=== PATIENT | female | born 2000 | race African-American/Black ===

== ENCOUNTER 2024-05-16 00:24 | Emergency (ER) | payer BC, SELFPAY ==
[2024-05-16 00:34] VITALS: BP 112/74
[2024-05-16 02:06] VITALS: BMI 22.2
[2024-05-16 02:10] VITALS: BP 93/68
[2024-05-16 03:00] VITALS: BP 100/69
--- NOTE | 2024-05-16 03:04 | EDRN ---
SPO2 from 02:51 charted in error. sensor not on patient properly, pt rechecked, 100% on room air
--- NOTE | 2024-05-16 03:46 | ED.GENMED ---
History of Present Illness
<CHRIS Trotter (Lenka) - Last Filed: 05/16/24 04:18>
General
Chief Complaint: Breathing Problem
Source: patient
Exam Limitations: none
Time Seen by Provider: 05/16/24 03:10
Nursing documentation reviewed up to this point in time: agreed with
History of Present Illness
History of Present Illness:
Pt is a 23yo female with PMHx of anemia presents to the ED for worsening shortness of breath x 1-2 weeks. She first noticed it when laying down, and reports that the SOB has consistently been present since. 'I am not able to catch a deep breath'. It
does not change with changes in position, it is consistent when laying down and sitting up. Admits to mild fatigue and headache. She denies pleuritic chest pain, chest palpitations, abdominal pain, cool extremities, calf cramping, fevers, chills,
URI sx. No sick contacts at home, no recent URI within the past month. She states that on the 08 of April she flew to [place], that is her only recent travel.
She does NOT smoke tobacco or do drugs.
No PMHx of allergies, asthma, COPD, sickle cell.
Pt not on daily medications, no OCPs, no aspirin, NSAIDs, antihistamines.
Past History
<CHRIS Trotter (Lenka) - Last Filed: 05/16/24 04:18>
Past History
ED Past Medical History: Other (anemia)
Social History
Tobacco: Non-smoker
Drug: None
Phy Exam
<CHRIS Trotter (Lenka) - Last Filed: 05/16/24 04:18>
General Physical Exam
General Presentation: well appearing and no apparent distress
General age: appears stated age
General Skin: warm and diaphoretic (mildly)
General Habitus: normal
General Mental: alert
General Hydration: appears well hydrated
Cardiovascular Exam
Cardiovascular Exam: regular rate/rhythm and normal peripheral pulses
Pulmonary Exam
Pulmonary Exam: no respiratory distress, no rales, chest non tender, no rhonchi, no wheezing and no cough
Gastrointestinal Exam
Gastrointestinal Exam: normal bowel sounds, non tender, soft, no pulsatile mass and non distended
Neurological Exam
Neurological Exam: alert, oriented x3 and speech normal
Scores
<Ammon Rhodes DO - Last Filed: 05/16/24 05:33>
PE Wells Score
Symptoms of DVT: No
No alternative diagnosis better explains the illness: No
Tachycardia with pulse > 100: No
Immobilization (>=3 days) or surgery within previous 4 weeks: No
Prior history of DVT or pulmonary embolism: No
Presence of hemoptysis: No
Presence of malignancy: No
Pulmonary Embolism Risk Score: 0
Probability of PE: Pt is low risk
Course
<ST Trotter (Lenka)PA - Last Filed: 05/16/24 04:18>
Orders/Labs/Results
Orders:
Orders
05/16/24 02:23
Test Result ONCE
CXR2 [CR Chest - 2 Views ] Urgent
Comment:
Reason For Exam: shortness of breath
05/16/24 03:49
EKG [Electrocardiogram (*1)] Urgent
Reason for Study: Shortness of Breath
05/16/24 03:59
CBC/With Diff [Complete Blood Count/With Diff] Urgent
CMP [Comprehensive Metabolic Panel] Urgent
D-Dimer Urgent
HCG, Serum Qualitative Screen Urgent
Comment: ADDON
05/16/24 04:03
Add On- LAB Urgent
Tests Added?: serum hcg qual
Abnormal Lab Results
05/16/24
03:59
MPV 12.6 H fL
(7.4-10.4)
05/16/24 03:59
05/16/24 03:59
Vital Signs
Initial and Last Documented VS:
Initial Vital Signs
Temp Pulse Resp BP Pulse Ox
98.2 F 101 22 112/74 98
05/16/24 00:34 05/16/24 00:34 05/16/24 00:34 05/16/24 00:34 05/16/24 00:34
Last Documented Vital Signs
Temp Pulse Resp BP Pulse Ox
98.2 F 89 20 101/82 96
05/16/24 00:34 05/16/24 05:10 05/16/24 05:10 05/16/24 05:10 05/16/24 05:00
<Ammon Rhodes, DO - Last Filed: 05/16/24 05:33>
Orders/Labs/Results
Orders:
Orders
05/16/24 02:23
Test Result ONCE
CXR2 [CR Chest - 2 Views ] Urgent
Comment:
Reason For Exam: shortness of breath
05/16/24 03:49
EKG [Electrocardiogram (*1)] Urgent
Reason for Study: Shortness of Breath
05/16/24 03:59
CBC/With Diff [Complete Blood Count/With Diff] Urgent
CMP [Comprehensive Metabolic Panel] Urgent
D-Dimer Urgent
HCG, Serum Qualitative Screen Urgent
Comment: ADDON
05/16/24 04:03
Add On- LAB Urgent
Tests Added?: serum hcg qual
Abnormal Lab Results
05/16/24
03:59
MPV 12.6 H fL
(7.4-10.4)
05/16/24 03:59
05/16/24 03:59
Vital Signs
Initial and Last Documented VS:
Initial Vital Signs
Temp Pulse Resp BP Pulse Ox
98.2 F 101 22 112/74 98
05/16/24 00:34 05/16/24 00:34 05/16/24 00:34 05/16/24 00:34 05/16/24 00:34
Last Documented Vital Signs
Temp Pulse Resp BP Pulse Ox
98.2 F 89 20 101/82 96
05/16/24 00:34 05/16/24 05:10 05/16/24 05:10 05/16/24 05:10 05/16/24 05:00
<CHRIS Trotter (Lenka) - Last Filed: 05/16/24 04:18>
MDM/Problems Addressed
Differential Diagnosis Includes:
23yo female with PMHx of anemia presents to the ED for worsening shortness of breath x 1-2 weeks. It does not change with changes in position, it is consistent when laying down and sitting up. Mild fatigue and ROMAN as associated sx.
Denies pleuritic chest pain, chest palpitations, abdominal pain, cool extremities, calf cramping. No sick contacts at home, no recent URI in the past month. She states that on the 08 of April she flew to [place], that is her only recent travel.
She does NOT smoke tobacco or do drugs.
No PMHx of allergies, asthma, COPD, sickle cell.
Pt not on daily medications, no OCPs, no aspirin, NSAIDs, antihistamines.
DDx: anemia vs pulmonary embolism vs asthma vs upper URI
Given benign PE and normal lung sounds, presence of SOB and ROMAN, we will check her H/H and RBC count with labs, as well as her electrolytes. Will order a D-dimer.
CXR - negative (my read)
EKG - NSR with sinus arrhythmia
Hemoglobin - 14.0
<CHRIS Trotter (Lenka) - Last Filed: 05/16/24 04:18>
*Critical Care Note
Total Time (30-74mins, 75-104mins- exclusive of procedures): Not Applicable
ED Attending Note
<CHRIS Trotter (Lenka) - Last Filed: 05/16/24 04:18>
-
Portions of this chart may have been created with voice recognition software.� Occasional wrong word or��sound alike� substitutions may have occurred due to the inherent limitations of voice recognition software.
<Ammon Rhodes DO - Last Filed: 05/16/24 05:33>
ED Attending Note
Patient seen and examined by attending physician: Yes
I performed the substantive portion of visit, reviewed & personally made and approve the management plan that is documented in note by myself or [place].: Yes
ED Attending Note:
Pleasant 23-year-old female who presents with shortness of breath for the last 2 weeks. She states that it waxes and wanes. She denies fever, chills. She reports no nausea or vomiting. She states that she is unable to keep her breath. She
reports that it is exacerbated when trying to catch her breath. Denies any sick contacts at home. Reports no chest pain. Patient was seen in conjunction with the PA student. I have reviewed and agree with the history and treatment plan
presented. On my independent physical exam, patient is awake, alert, and oriented x3, no acute distress resting comfortably. Heart is regular rate rhythm. Lungs are clear to auscultation bilaterally without wheezes rales or rhonchi present.
Abdomen is soft and nontender nondistended no hepatosplenomegaly. Moves all 4 extremities. Skin is warm and dry.
D-dimer is negative.
Discharge Plan
Departure
Patient Disposition: Home (Routine Discharge)
Date of Disposition: 05/16/24
Time of Disposition: 05:21
Patient with high blood pressure during this ER visit?: Yes
Condition: Good
Discharge Problem:
Acute dyspnea
Instructions: Shortness of Breath (Dyspnea) (DC)
Referrals:
[facility] [Outside]
[facility] [Outside]
Eusebio Kenny MD [Active] - As needed
NONE,* [Family Provider] -
Interventions
Interventions:
*Risk Screen - Suicide Last Done: 05/16/24 00:34
*General Assessment Last Done: 05/16/24 02:06
*Neglect/Abuse Screening Last Done: 05/16/24 00:34
ED- Fall Risk Assessment Last Done: 05/16/24 02:06
*ED COVID-19 Vaccine History Last Done: 05/16/24 02:06
ED- Cardiac Assessment Last Done: 05/16/24 02:06
ED- Pulmonary Assessment Last Done: 05/16/24 02:06
Discharge Date and Time
Print Language: BRAZILIAN
[2024-05-16 04:00] VITALS: BP 99/68
[2024-05-16 04:12] LABS: % Basophils 0.5 % (0-2); % Eosinophils 1.4 % (0-6); % Immature Granulocytes 0.1 % (0-0.5); % Lymphocytes 34.2 % (20.5-51.1); % Monocytes 7.4 % (1.7-9.3); % Neutrophils 56.4 % (42.2-75.2); Absolute Eosinophils 0.1 10^3/uL (0-0.7); Absolute Lymphocytes 2.7 10^3/uL (1.2-3.4); Absolute Monocytes 0.6 10^3/uL (0.1-0.6); Absolute Neutrophils 4.4 10^3/uL (1.4-6.5); Hematocrit 39.8 % (37.0-47.0); Mean Corp Hgb Conc. 35.2 g/dL (33.0-37.0); Mean Corpuscular Hgb 30.8 pg (27.0-31.0); Mean Corpuscular Volume 87.5 fL (81.0-99.0); Mean Platelet Volume 12.6 fL (7.4-10.4); Nucleated Red Blood Cells % 0 %; Platelet Count 170 10^3/uL (130-400); Red Blood Cell Count 4.55 10^6/uL (4.20-5.40); Red Cell Dist. Width 11.9 % (11.5-14.5); White Blood Cell Count 7.7 10^3/uL (4.8-10.8)
[2024-05-16 04:15] LABS: HCG, Serum Qualitative Screen Negative
[2024-05-16 04:19] LABS: D-Dimer 0.29 ug/mlFEU (0.00-0.50)
[2024-05-16 04:24] LABS: ALT (SGPT) 12 U/L (0-35); AST (SGOT) 21 U/L (14-36); Albumin 4.2 g/dl (3.5-5.0); Alkaline Phosphatase 62 U/L (38-126); Blood Urea Nitrogen 9 mg/dl (7-17); Calcium 9.7 mg/dl (8.4-10.2); Carbon Dioxide 25 mmol/L (22-30); Chloride 107 mmol/L (98-107); Estimated Creatinine Clearance > 125 ml/min; Glucose 89 mg/dl (70-99); Potassium 4.1 mmol/L (3.5-5.1); Sodium 137 mmol/L (135-145); Total Bilirubin 0.3 mg/dl (0.2-1.3); Total Protein 6.7 g/dl (6.3-8.2); eGFR > 60.00
[2024-05-16 05:10] VITALS: BP 101/82
== END 2024-05-16 05:33 | disposition home or self-care (01) ==
LOC: EMR 00:24
PROVIDERS: EMERGENCY PHYSICIAN Student in an Organized Health Care Education/Training Program
DX: R06.00 Dyspnea, unspecified (principal); D64.9 Anemia, unspecified
CPT/HCPCS: 99283; 71046; 80053; 84703; 85025; 85379; 93005